=== PATIENT | female | born 1980 | race Caucasian/White ===

== ENCOUNTER 2017-07-05 18:30 | Emergency (ER) | payer BC ==
[~2017-07-05] VITALS: Ht 162.6 cm; Wt 63.5 kg
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
--- NOTE | 2017-07-05 19:05 | NUR ---
CARRIE WEBBER SEEING PT AT THIS TIME
[2017-07-05] MEDS ORDERED: IBUPROFEN 400 MG TABLET PO ONE (19:30)
[2017-07-05] MEDS ORDERED: FLUORESCEIN SODIUM OPHTH 1 EA STRIP OP ONE ×2 (20:00)
[2017-07-05] MEDS ORDERED: TETRACAINE HCL 0.5% OPHTALMIC 15 ML BOTTLE OP ONE (20:00)
[2017-07-05] MEDS ORDERED: TETRACAINE HCL/PF 0.5% UD 2 ML BOTTLE OP ONE (20:00)
[2017-07-05] MEDS ORDERED: IBUPROFEN 400 MG TABLET ONE (20:18)
--- NOTE | 2017-07-05 20:35 | NUR ---
IRMA MITCHELL AT BEDSIDE FOR EYE EVAL.
[2017-07-05] MEDS ORDERED: FLUORESCEIN SODIUM OPHTH 1 EA STRIP ONE (20:38)
[2017-07-05] MEDS ORDERED: TETRACAINE HCL/PF 0.5% UD 2 ML BOTTLE ONE (20:38)
[2017-07-05 20:54] VITALS: BP 128/82
--- NOTE | 2017-07-05 20:58 | NUR ---
Patient discharged to home in stable condition. Written and verbal after care instructions given. Patient verbalizes understanding of instruction. Pt ambulatory with a steady gait. VSS, NAD noted on DC. Denies complaint on DC
== END 2017-07-05 20:59 | disposition home or self-care (01) ==
LOC: ER 18:33
DX: S50.812A Abrasion of left forearm, initial encounter (principal); J45.909 Unspecified asthma, uncomplicated; V43.52XA Car driver injured in collision with other type car in traffic accident, initial encounter; Y92.410 Unspecified street and highway as the place of occurrence of the external cause; Y93.89 Activity, other specified; Y99.8 Other external cause status
CPT/HCPCS: 73090; 73130; 99284; A4606; A6402; A6403; Z7610